=== PATIENT | female | born 1945 | race Two or more races ===

== ENCOUNTER 2019-02-24 16:15 | Inpatient (IN) | payer OTHER ==
[~2019-02-24] VITALS: Ht 157.5 cm; Wt 52.2 kg
[2019-03-15] MEDS ORDERED: XARELTO20 MG PO (15:49)
[2019-03-15] MEDS ORDERED: TOPROL XL50 M1 PO (15:51)
[2019-03-15] MEDS ORDERED: COZAAR50 MG PO (15:51)
[2019-03-15] MEDS ORDERED: SYNTHROID112 MCG PO (15:51)
[2019-03-15] MEDS ORDERED: LANOXIN62.5 MCG PO (15:51)
== END 2019-03-25 18:54 | disposition home or self-care (01) | DRG 330 ==
LOC: SURG 03-22 05:00 → O/R 03-22 05:00 → SURG 03-22 10:15
PROVIDERS: ADMIT Colon & Rectal Surgery
PROC: 07TB4ZZ Resection of Mesenteric Lymphatic, Percutaneous Endoscopic Approach (ICD-10-PCS; 2019-03-22)
PROC: 0DBU4ZZ Excision of Omentum, Percutaneous Endoscopic Approach (ICD-10-PCS; 2019-03-22)
PROC: 4A12X4Z Monitoring of Cardiac Electrical Activity, External Approach (ICD-10-PCS; 2019-03-22)
PROC: 0DTF4ZZ Resection of Right Large Intestine, Percutaneous Endoscopic Approach (ICD-10-PCS; principal; 2019-03-22 14:00)
PROC: 4A033R1 Measurement of Arterial Saturation, Peripheral, Percutaneous Approach (ICD-10-PCS; 2019-03-23)
DX: C18.0 Malignant neoplasm of cecum (principal); J95.89 Other postprocedural complications and disorders of respiratory system, not elsewhere classified; J98.11 Atelectasis; R59.0 Localized enlarged lymph nodes; K63.89 Other specified diseases of intestine; K66.8 Other specified disorders of peritoneum; E03.8 Other specified hypothyroidism; G47.33 Obstructive sleep apnea (adult) (pediatric); I11.9 Hypertensive heart disease without heart failure; I48.0 Paroxysmal atrial fibrillation; Z79.01 Long term (current) use of anticoagulants